=== PATIENT | female | born 1970 | race Caucasian/White ===

== ENCOUNTER 2022-06-29 15:25 | Inpatient (IN) | payer OTHER ==
[~2022-06-29] VITALS: Ht 154.9 cm; Wt 61.2 kg
[2022-06-29] MEDS ORDERED: ONDANSETRON HCL 4MG/2ML INJ IV STA (15:48)
[2022-06-29] MEDS ORDERED: SODIUM CHLORIDE 0.9% 1,000 ML IV ONE (16:00)
[2022-06-29] MEDS ORDERED: PANTOPRAZOLE SODIUM 40 MG/VIAL IV ONE (16:00)
[2022-06-29] MEDS ORDERED: CEFTRIAXONE 1 G PREMIX 50 ML IV ONE (16:00)
[2022-06-29] MEDS ORDERED: METOCLOPRAMIDE HCL 10MG/2ML VIAL IV ONE (16:00)
[2022-06-29 17:10] LABS: BASOPHILS % 0.3 % (0.0-2.0); EOSINOPHILS % 0.2 % (0.0-5.0); HEMATOCRIT. 31.7 % (36.0-48.0); HEMOGLOBIN. 10.4 g/dL (12.0-16.0); LYMPHOCYTES % 7.8 % (20.0-50.0); MEAN CORPUSCULAR HEMOGLOBIN 32.8 pg (28.0-32.0); MEAN PLATELET VOLUME 7.4 fl (7.4-10.4); MONOCYTES % 8.2 % (2.0-8.0); NEUTROPHILS % 83.5 % (40.0-76.0); PLATELET 55 x1000/uL (130-400); RED BLOOD CELL COUNT 3.17 mill/uL (4.2-5.4); RED CELL DISTRIBUTION WIDTH 19.1 % (11.6-14.6)
[2022-06-29 17:18] LABS: CHLORIDE 99 mEq/L (98-107)
[2022-06-29 17:20] LABS: INR 1.2; PARTIAL THROMBOPLASTIN TIME 27.5 sec (23.4-31.0)
[2022-06-29 17:29] LABS: ETHANOL BLOOD < 10 mg/dL
[2022-06-29] MEDS ORDERED: IOHEXOL-300 100 ML BOTTLE ONE (17:49)
[2022-06-29] MEDS: MORPHINE SULFATE 2 MG/ML CPJ (NOT FOR IM USE) IV PRN (20:30)
[2022-06-29] MEDS ORDERED: ONDANSETRON INJ 8 MG in DEXTROSE 5% WATER 46 ML IV PRN (20:30)
[2022-06-29] MEDS ORDERED: MORPHINE SULFATE 4 MG/ML CPJ (NOT FOR IM USE) IV NR (20:30)
[2022-06-29] MEDS ORDERED: NALOXONE HCL 0.4MG/ML VIAL IV PRN (20:30)
[2022-06-30 01:20] LABS: CLARITY URINE CLEAR (CLEAR); COLOR URINE YELLOW (YELLOW); KETONES URINE NEGATIVE (NEGATIVE); LEUKOCYTE ESTERASE URINE NEGATIVE (NEGATIVE); NITRITE URINE NEGATIVE (NEGATIVE); OCCULT BLOOD URINE NEGATIVE (NEGATIVE); PROTEIN URINE NEGATIVE (NEGATIVE); SPECIFIC GRAVITY URINE 1.038 (1.005-1.030); UROBILINOGEN URINE 0.2 E.U./dL (0.2-1.0)
[2022-06-30] MEDS: MORPHINE SULFATE 2 MG/ML CPJ (NOT FOR IM USE) IV PRN ×3 (02:06→11:06)
[2022-06-30] MEDS: PANTOPRAZOLE SODIUM 40 MG/VIAL IV SCH ×2 (10:00→21:47)
[2022-06-30] MEDS: DEXT 5%/0.9% NACL 1,000 ML IV SCH (10:00)
[2022-06-30] MEDS ORDERED: HYDROCODONE/ACETAMINOPHEN 5/325MG TABLET PO PRN (15:00)
[2022-06-30 15:48] VITALS: BP 104/55
[2022-06-30 16:00] VITALS: BP 106/60
[2022-06-30 17:52] LABS: TOTAL IRON BINDING CAPACITY 164 ug/dL (250-450)
[2022-06-30 19:35] LABS: MEAN CORPUSCULAR HEMOGLOBIN 32.3 pg (28.0-32.0); MEAN CORPUSCULAR VOLUME 97.1 fL (81.0-99.0); PLATELET 76 x1000/uL (130-400); RED BLOOD CELL COUNT 1.85 mill/uL (4.2-5.4); RED CELL DISTRIBUTION WIDTH 18.3 % (11.6-14.6)
[2022-06-30] MEDS ORDERED: MORP15TA67 PO (19:44)
[2022-06-30] MEDS ORDERED: TRAZ-251 PO (19:44)
[2022-06-30 20:00] VITALS: BP 94/58
[2022-06-30 21:46] VITALS: BP 97/59
[2022-06-30 22:01] VITALS: BP 99/62
[2022-06-30 23:01] VITALS: BP 102/71
[2022-07-01] VITALS: BP 97/60
[2022-07-01 00:01] VITALS: BP 98/59
[2022-07-01] MEDS ORDERED: ONDANSETRON HCL 4MG/2ML INJ IV PRN (01:15)
[2022-07-01] MEDS: DEXT 5%/0.9% NACL 1,000 ML IV SCH (01:26)
[2022-07-01 04:00] VITALS: BP 93/55
[2022-07-01 06:51] LABS: BASOPHILS % 0.2 % (0.0-2.0); EOSINOPHILS % 0.3 % (0.0-5.0); HEMATOCRIT. 21.2 % (36.0-48.0); HEMOGLOBIN. 7.2 g/dL (12.0-16.0); LYMPHOCYTES % 16.6 % (20.0-50.0); MEAN CORPUSCULAR HEMOGLOBIN 33.3 pg (28.0-32.0); MEAN CORPUSCULAR VOLUME 97.8 fL (81.0-99.0); MEAN PLATELET VOLUME 7.2 fl (7.4-10.4); MONOCYTES % 8.6 % (2.0-8.0); NEUTROPHILS % 74.3 % (40.0-76.0); PLATELET 65 x1000/uL (130-400); RED BLOOD CELL COUNT 2.17 mill/uL (4.2-5.4)
[2022-07-01 08:00] VITALS: BP 91/58
[2022-07-01] MEDS: PANTOPRAZOLE SODIUM 40 MG/VIAL IV SCH (08:49)
[2022-07-01 12:00] VITALS: BP 95/61
[2022-07-01 15:47] VITALS: BP 92/55
== END 2022-07-01 16:00 | disposition hospice, home (50) | DRG 253 ==
LOC: ER 15:25 → MICUSO 06-30 00:23 → 7WST 06-30 15:50
PROVIDERS: ADMIT Internal Medicine; ATTEND Internal Medicine
PROC: 30233N1 Transfusion of Nonautologous Red Blood Cells into Peripheral Vein, Percutaneous Approach (ICD-10-PCS; principal; 2022-06-30)
DX: K92.2 Gastrointestinal hemorrhage, unspecified (principal); E43 Unspecified severe protein-calorie malnutrition; N17.9 Acute kidney failure, unspecified; R18.8 Other ascites; C78.7 Secondary malignant neoplasm of liver and intrahepatic bile duct; D64.9 Anemia, unspecified; G89.29 Other chronic pain; K92.0 Hematemesis; Z51.5 Encounter for palliative care
CPT/HCPCS: 36415; 71045; 74177; 80048; 80053; 80320; 81003; 82728; 83540; 83550; 83605; 83880; 84484; 85025; 85027; 85044; 86850; 86900; 86920; 93005; 99291; C1893; C9113; J0696; J2270; J2405; J2765; J7030; J7042; J7060; P9016; Q9967; G0480